=== PATIENT | female | born 1990 | race Caucasian/White ===

== ENCOUNTER 2018-04-15 00:11 | Emergency (ER) | payer OTHER ==
[2018-04-15 00:25] VITALS: BP 130/80
[2018-04-15] MEDS ORDERED: DIAZEPAM 5 MG PREPACK#4 BTL TAKEHOME ONE (00:28)
--- NOTE | 2018-04-15 00:29 | EDPHY ---
H & P Stated Complaint: c/o lower back s/p fall down stairs this pm Time Seen by Provider: 04/15/18 00:19 HPI/ROS: CHIEF COMPLAINT: Low back pain HISTORY OF PRESENT ILLNESS: The patient is a 27-year-old female who comes to the emergency department complaining muscular low back pain. She states that she was walking down the stairs when she slipped and fell onto her butt and slid down the last few steps. She did not have any significant pain initially but over the last couple of hours has had increasing pain and spasming in her back. She went to an urgent care who recommended she come to the ER to get x- rays. She has no focal weakness or deficits. No bowel or bladder abnormalities. No paresthesias. She did not hit her head. She does not have any weakness or numbness. No abrasions or lacerations. REVIEW OF SYSTEMS: Constitutional: denies: chills, fever, recent illness, recent injury EENTM: denies: blurred vision, double vision, nose congestion Respiratory: denies: cough, shortness of breath Cardiac: denies: chest pain, irregular heart rate, lightheadedness, palpitations Gastrointestinal/Abdominal: denies: abdominal pain, diarrhea, nausea, vomiting, blood streaked stools Genitourinary: denies: dysuria, frequency, hematuria, pain Musculoskeletal: See HPI Skin: denies: lesions, rash, jaundice, bruising Neurological: See HPI denies: headache, numbness, paresthesia, tingling, dizziness, weakness Hematologic/Lymphatic: denies: blood clots, easy bleeding, easy bruising Immunologic/allergic: denies: HIV/AIDS, transplant EXAM: GENERAL: Well-appearing, well-nourished and in no acute distress. HEAD: Atraumatic, normocephalic. EYES: Pupils equal round and reactive to light, extraocular movements intact, sclera anicteric, conjunctiva are normal. ENT: TMs normal, nares patent, oropharynx clear without exudates. Moist mucous membranes. NECK: Normal range of motion, supple without lymphadenopathy or JVD. LUNGS: Breath sounds clear to auscultation bilaterally and equal. No wheezes rales or rhonchi. HEART: Regular rate and rhythm without murmurs, rubs or gallops. ABDOMEN: Soft, nontender, normoactive bowel sounds. No guarding, no rebound. No masses appreciated. BACK: mild CVA tenderness and spasming improves with massage, no spinal tenderness, step-offs or deformities EXTREMITIES: Normal range of motion, no pitting or edema. No clubbing or cyanosis. NEUROLOGICAL: Cranial nerves II through XII grossly intact. Normal speech, normal gait. 5/5 strength, normal movement in all extremities, normal sensation PSYCH: Normal mood, normal affect. SKIN: Warm, dry, normal turgor, no visible rashes or lesions. Source: Patient Exam Limitations: No limitations - Personal History LMP (Females 10-55): IUD In Place Current Tetanus Diphtheria and Acellular Pertussis (TDAP): Yes - Medical/Surgical History Hx Asthma: No Hx Chronic Respiratory Disease: No Hx Diabetes: No Hx Cardiac Disease: No Hx Renal Disease: No Hx Cirrhosis: No Hx Alcoholism: No Hx HIV/AIDS: No Hx Splenectomy or Spleen Trauma: No Other PMH: med hx-anxiety. surg-wisdom teeth - Family History Significant Family History: No pertinent family hx - Social History Smoking Status: Unknown if ever smoked Alcohol Use: Sober Drug Use: None Constitutional: Initial Vital Signs Temperature (C) 36.6 C 04/15/18 00:22 Heart Rate 75 04/15/18 00:22 Respiratory Rate 18 04/15/18 00:22 Blood Pressure 130/80 H 04/15/18 00:22 O2 Sat (%) 97 04/15/18 00:22 O2 Delivery Mode Room Air Allergies/Adverse Reactions: Penicillins Allergy (Verified 04/26/16 22:22) Home Medications: Medication Instructions Recorded Bcp 04/26/16 Concerta 04/26/16 Effexor 04/26/16 Diazepam [Valium 5 MG (*)] 5 mg PO TID PRN #10 tab 04/15/18 Medical Decision Making ED Course/Re-evaluation: The patient appears to as low back pain secondary to muscle spasming and possibly early contusions. There is no sign of spinal tenderness deformity fracture. This is very low risk mechanism. No signs of cauda equina or spinal cord type injury. No focal neurologic deficits. She is ambulating without difficulty in the room. She came here for x-rays. We discussed the risks and benefits of this. We discussed the fact that the vast majority of these resolve without indication for imaging and that even if she does have a small compression fracture or spinous process fracture that that would be treated simply with rest and pain medication. The patient understands and agrees with this plan. I instructed her to return or seek imaging if she is not feeling better in a couple of weeks or she develops any neurologic problems as we discussed. Differential Diagnosis: Partial list of the Differential diagnosis considered include but were not limited to; low back strain, contusion and although unlikely based on the history and physical exam, I also considered fracture, spinal cord injury, cauda equina, radiculopathy, head injury, neck injury. I discussed these differential diagnoses and the plan with the patient as well as the usual and expected course. The patient understands that the diagnosis is provisional and that in medicine we are not always correct and that further workup is often warranted. Usual and customary warnings were given. All of the patient's questions were answered. The patient was instructed to return to the emergency department should the symptoms at all worsen or return, otherwise to followup with the physician as we discussed. - Data Points Medications Given: Discontinued Medications Diazepam (Valium 5 Mg Prepack#4) 1 btl TAKEBELVIDERE EDNOW ONE Stop: 04/15/18 00:29 Last Admin: 04/15/18 00:33 Dose: 1 btl Departure - Departure Disposition: Home, Routine, Self-Care Clinical Impression: Low back pain Qualifiers: Chronicity: acute Back pain laterality: bilateral Sciatica presence: without sciatica Qualified Code(s): M54.5 - Low back pain Condition: Fair Instructions: Low Back Strain (ED) Referrals: Patient,NotPresent [Primary Care Provider] - As per Instructions Prescriptions: Diazepam [Valium 5 MG (*)] 5 mg PO TID PRN #10 tab PRN Reason: Spasms
== END 2018-04-15 00:38 | disposition home or self-care (01) ==
LOC: CED 00:11
DX: S39.012A Strain of muscle, fascia and tendon of lower back, initial encounter (principal); W10.8XXA Fall (on) (from) other stairs and steps, initial encounter